=== PATIENT | female | born 1965 | race Two or more races ===

== ENCOUNTER 2018-11-17 09:03 | Outpatient (CLI) | payer OTHER | END 2018-11-17 12:55 | disposition home or self-care (01) | LOC: SONOGRAMA 09:03 | DX: E04.1 Nontoxic single thyroid nodule (principal) ==

== ENCOUNTER 2024-01-31 09:25 | Outpatient (CLI) | payer OTHER | END 2024-01-31 09:30 | disposition home or self-care (01) | LOC: SONOGRAMA 09:25 | PROVIDERS: ATTEND Pathology Anatomic Pathology & Clinical Pathology | DX: D34 Benign neoplasm of thyroid gland (principal); E07.89 Other specified disorders of thyroid; E04.2 Nontoxic multinodular goiter ==

== ENCOUNTER 2024-05-11 07:43 | Outpatient (CLI) | payer OTHER | END 2024-05-11 07:51 | disposition home or self-care (01) | LOC: TOM 07:43 | PROVIDERS: ATTEND Acupuncturist | DX: R22.2 Localized swelling, mass and lump, trunk (principal) ==